=== PATIENT | female | born 1935 | race Caucasian/White ===

== ENCOUNTER 2017-03-09 17:13 | Emergency (ER) | payer MEDICARE, BC ==
[~2017-03-09] VITALS: Ht 157.5 cm; Wt 65.0 kg
[~2017-03-09 17:13] MED LIST: ALBUTEROL SUL0.083 % IN; AMIODARONE200 MG PO; AMITRIPTYLIN100 MG OR; ASPIRIN ADULT L81 MG PO; AVALIDE1 TA1 OR; CARDIZEM CD120 MG PO; COUMADIN2.5 MG OR; COUMADIN2.5 MG PO; COUMADIN5 MG OR; COUMADIN5 MG PO; DARVOCET N-100100 - OR; FAMVIR500 MG OR; FUROSEMIDE40 MG PO; GABAPENTIN300 MG PO; IMDUR60 MG OR; LANOXIN0.125 MG PO; LEVOTHYROXIN75 MCG PO; LIPITOR20 MG OR; LORTAB 5 OR; LOSARTAN POT50 MG PO; LUNESTA3 MG OR; LYRICA75 MG OR; METO50TA52 OR; METO50TA52 PO; METOPROL TAR100 MG PO; PERSANTINE25 MG OR; PREVACID30 M1 OR; PROAIR HFA IN; TRAMADOL HCL50 MG PO; TUSSIONEX1 ML OR; VITAMIN B-121000 MC1 IM; ZANTAC150 M1 OR
[2017-03-09] MEDS ORDERED: ELIQUIS2.5 MG PO (17:54)
[2017-03-09 18:50] VITALS: BP 177/100
== END 2017-03-09 19:00 | disposition home or self-care (01) ==
LOC: ED 17:13
PROC: 2W3DX1Z Immobilization of Left Lower Arm using Splint (ICD-10-PCS; principal; 2017-03-09)
DX: S63.502A Unspecified sprain of left wrist, initial encounter (principal); W01.0XXA Fall on same level from slipping, tripping and stumbling without subsequent striking against object, initial encounter; Y93.H9 Activity, other involving exterior property and land maintenance, building and construction; Y92.007 Garden or yard of unspecified non-institutional (private) residence as the place of occurrence of the external cause

== ENCOUNTER 2017-04-26 23:27 | Emergency (ER) | payer MEDICARE, BC ==
[~2017-04-26] VITALS: Ht 157.5 cm; Wt 64.6 kg
[~2017-04-26 23:27] MED LIST changes: -AMITRIPTYLIN100 MG OR; +AMITRIPTYLIN100 MG PO; +ELIQUIS2.5 MG PO
[2017-04-26] MEDS ORDERED: ELIQUIS5 MG PO (23:56)
[2017-04-27] MEDS ORDERED: LEVOTHYROXIN50 MCG PO (00:05)
[2017-04-27] MEDS ORDERED: GABAPENTIN100 MG PO (00:06)
[2017-04-27] MEDS ORDERED: METOPROL TAR25 MG PO (00:08)
[2017-04-27] MEDS ORDERED: DUONEB IN (00:10)
[2017-04-27 01:05] VITALS: BP 162/101
== END 2017-04-27 01:05 | disposition home or self-care (01) ==
LOC: ED 23:27
PROC: 0HQ0XZZ Repair Scalp Skin, External Approach (ICD-10-PCS; principal; 2017-04-27)
DX: S01.01XA Laceration without foreign body of scalp, initial encounter (principal); W01.190A Fall on same level from slipping, tripping and stumbling with subsequent striking against furniture, initial encounter; Y93.E8 Activity, other personal hygiene; Y92.003 Bedroom of unspecified non-institutional (private) residence as the place of occurrence of the external cause

== ENCOUNTER 2017-06-08 22:07 | Emergency (ER) | payer MEDICARE, BC ==
[~2017-06-08] VITALS: Ht 157.5 cm; Wt 63.2 kg
[~2017-06-08 22:07] MED LIST changes: +DUONEB IN; +ELIQUIS5 MG PO; +GABAPENTIN100 MG PO; +LEVOTHYROXIN50 MCG PO; +METOPROL TAR25 MG PO
[2017-06-08 23:25] VITALS: BP 147/85
== END 2017-06-08 23:25 | disposition home or self-care (01) ==
LOC: ED 22:07
DX: R04.0 Epistaxis (principal); Z79.01 Long term (current) use of anticoagulants

== ENCOUNTER 2019-06-12 | Emergency (ER) | payer MEDICARE, BC ==
[2019-06-12] MEDS ORDERED: LEVOTHYROXIN75 MCG PO (16:55)
[2019-06-12] MEDS ORDERED: LOSARTAN POTAS100 MG PO (16:56)
== END 2019-06-12 19:50 | disposition home or self-care (01) ==
DX: R04.0 Epistaxis (principal); I10 Essential (primary) hypertension; J44.9 Chronic obstructive pulmonary disease, unspecified; E03.9 Hypothyroidism, unspecified; Z79.01 Long term (current) use of anticoagulants; Z86.73 Personal history of transient ischemic attack (TIA), and cerebral infarction without residual deficits

== ENCOUNTER 2019-09-16 | Emergency (ER) | payer MEDICARE, BC ==
[~2019-09-16] MED LIST changes: +LOSARTAN POTAS100 MG PO
== END 2019-09-17 00:05 | disposition home or self-care (01) ==
DX: R04.0 Epistaxis (principal); I10 Essential (primary) hypertension; J44.9 Chronic obstructive pulmonary disease, unspecified; E03.9 Hypothyroidism, unspecified; Z79.01 Long term (current) use of anticoagulants; Z86.73 Personal history of transient ischemic attack (TIA), and cerebral infarction without residual deficits

== ENCOUNTER 2019-09-20 16:11 | Emergency (ER) | payer MEDICARE, BC ==
[2019-09-20 17:40] VITALS: BP 144/81
== END 2019-09-20 17:40 | disposition home or self-care (01) ==
LOC: ED 16:11
DX: R04.0 Epistaxis (principal); I10 Essential (primary) hypertension; E03.9 Hypothyroidism, unspecified; J44.9 Chronic obstructive pulmonary disease, unspecified; Z86.73 Personal history of transient ischemic attack (TIA), and cerebral infarction without residual deficits